=== PATIENT | male | born 1995 | race Asian ===

== ENCOUNTER 2019-09-26 00:21 | Emergency (ER) | payer OTHER ==
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
[2019-09-26 02:29] VITALS: BP 126/84
== END 2019-09-26 02:28 | disposition home or self-care (01) ==
LOC: ED 00:21
DX: H20.9 Unspecified iridocyclitis (principal); S00.91XA Abrasion of unspecified part of head, initial encounter; W22.8XXA Striking against or struck by other objects, initial encounter; Y92.9 Unspecified place or not applicable; R51 Headache
CPT/HCPCS: 99282